=== PATIENT | male | born 1990 | race American Indian/Alaskan Native ===

== ENCOUNTER 2016-10-22 07:43 | Emergency (ER) | payer OTHER ==
[2016-10-22 07:53] VITALS: BP 134/89
--- NOTE | 2016-10-22 09:18 | Emergency Department Report ---
Abscess Boil HPI - HPI Chief Complaint: Skin/Abscess/Foreign Body Stated Complaint: BOIL/UNDER ARM AREA Time Seen by Provider: 10/22/16 08:47 Duration: Today Location: Upper Extremity Severity: Mild History: No Fever, No Pain, No Purulent Drainage, No Numbness, No Foreign Body, No Previous History, No Insect Bite HPI: 26-year-old male past medical history recurrent axillary abscesses presents with 2 days of left axillary abscess. Denies any fever or chills. States he has had many of these in the past. Home Medications: Home Medications Medication Instructions Recorded Confirmed Last Taken Albuterol Sulfate [Albuterol 0.63%] PRN 02/14/14 12/07/14 02/14/14 10:00 Previous Rx's Medication Instructions Recorded Last Taken Type Acetaminophen/Codeine 1 tab PO Q6H PRN #12 tab 12/07/14 Unknown Rx [Acetaminophen-Codeine #3 TAB] Ibuprofen [Motrin] 600 mg PO Q8H PRN #30 tablet 12/07/[address] [Slava Gomez] 75 mg PO Q12H #30 tablet 07/22/15 Unknown Rx traMADol [Ultram 50 MG tab] 50 mg PO Q6HR PRN #20 tablet 07/22/15 Unknown Rx Acetaminophen/Codeine [Tylenol #3] 1 tab PO Q6H PRN #10 tab 09/13/15 Unknown Rx Cephalexin [Keflex] 500 mg PO Q12HR #10 cap 09/13/15 Unknown Rx Ibuprofen [Motrin 800 MG tab] 800 mg PO Q8HR PRN #30 tablet 09/13/15 Unknown Rx Sulfamethoxazole/Trimethoprim 1 each PO BID #20 tablet 09/25/15 Unknown Rx [Bactrim DS TAB] Cephalexin [Keflex] 500 mg PO BID #14 capsule 10/22/16 Unknown Rx Ibuprofen [Motrin] 600 mg PO Q8H PRN #25 tablet 10/22/16 Unknown Rx Sulfamethoxazole/Trimethoprim 1 each PO BID #14 tablet 10/22/16 Unknown Rx [Bactrim DS TAB] Allergies/Adverse Reactions: Allergies Allergy/AdvReac Type Severity Reaction Status Date / Time No Known Allergies Allergy Verified 12/07/14 09:35 ED Review of Systems ROS: Stated complaint: BOIL/UNDER ARM AREA Other details as noted in HPI Constitutional: denies: chills, fever Eyes: denies: eye pain, eye discharge, vision change ENT: denies: ear pain, throat pain Respiratory: denies: cough, shortness of breath, wheezing Cardiovascular: denies: chest pain, palpitations Endocrine: no symptoms reported Gastrointestinal: denies: abdominal pain, nausea, diarrhea Genitourinary: denies: urgency, dysuria Musculoskeletal: denies: back pain, joint swelling, arthralgia Skin: as per HPI. denies: rash, lesions Neurological: denies: headache, weakness, paresthesias Psychiatric: denies: anxiety, depression Hematological/Lymphatic: denies: easy bleeding, easy bruising ED Past Medical Hx - Past Medical History Hx Asthma: Yes - Surgical History Past Surgical History?: No - Social History Smoking Status: Current Every Day Smoker Substance Use Type: Alcohol, Marijuana - Medications Home Medications: Home Medications Medication Instructions Recorded Confirmed Last Taken Type Albuterol Sulfate [Albuterol 0.63%] PRN 02/14/14 12/07/14 02/14/14 10:00 History Acetaminophen/Codeine 1 tab PO Q6H PRN #12 tab 12/07/14 Unknown Rx [Acetaminophen-Codeine #3 TAB] Ibuprofen [Motrin] 600 mg PO Q8H PRN #30 tablet 12/07/[address] [Slava Gomez] 75 mg PO Q12H #30 tablet 07/22/15 Unknown Rx traMADol [Ultram 50 MG tab] 50 mg PO Q6HR PRN #20 tablet 07/22/15 Unknown Rx Acetaminophen/Codeine [Tylenol #3] 1 tab PO Q6H PRN #10 tab 09/13/15 Unknown Rx Cephalexin [Keflex] 500 mg PO Q12HR #10 cap 09/13/15 Unknown Rx Ibuprofen [Motrin 800 MG tab] 800 mg PO Q8HR PRN #30 tablet 09/13/15 Unknown Rx Sulfamethoxazole/Trimethoprim 1 each PO BID #20 tablet 09/25/15 Unknown Rx [Bactrim DS TAB] Cephalexin [Keflex] 500 mg PO BID #14 capsule 10/22/16 Unknown Rx Ibuprofen [Motrin] 600 mg PO Q8H PRN #25 tablet 10/22/16 Unknown Rx Sulfamethoxazole/Trimethoprim 1 each PO BID #14 tablet 10/22/16 Unknown Rx [Bactrim DS TAB] ED Abscess Boil Physical Exam - Exam General: Vital signs noted. No distress. Alert and acting appropriately. I & D Note - I & D Note I & D Note: Area infiltrated with 2% lidocaine no epi, small vertical incision 1 cm made tiny amount of purulent drainage procedure tolerated well minimal bleeding covered with 4 x 4 gauze no packing placed ED Course Vital Signs 10/22/16 07:49 Temperature 98.1 F Pulse Rate 96 H Respiratory 16 Rate Blood Pressure 134/89 O2 Sat by Pulse 98 Oximetry Critical care attestation.: If time is entered above; I have spent that time in minutes in the direct care of this critically ill patient, excluding procedure time. ED Medical Decision Making - Medical Decision Making A/P: Left axillary abscess 1-I&D performed minimal drainage 2-small amount of erythema will cover empirically with Bactrim and Keflex 3-Motrin when necessary for pain ED Disposition Clinical Impression: Axillary abscess Disposition: DISCHARGED TO HOME OR SELFCARE Is pt being admited?: No Does the pt Need Aspirin: No Condition: Stable Instructions: Abscess Incision and Drainage (ED) Prescriptions: Cephalexin [Keflex] 500 mg PO BID #14 capsule Ibuprofen [Motrin] 600 mg PO Q8H PRN #25 tablet PRN Reason: Pain Sulfamethoxazole/Trimethoprim [Bactrim DS TAB] 1 each PO BID #14 tablet Referrals: PRIMARY CARE, [Primary Care Provider] - 3-5 Days Forms: Work/School Release Form(ED) Time of Disposition: 09:16
== END 2016-10-22 09:28 | disposition home or self-care (01) ==
LOC: ED 07:43
DX: L02.412 Cutaneous abscess of left axilla (principal); J45.909 Unspecified asthma, uncomplicated; F17.200 Nicotine dependence, unspecified, uncomplicated; F12.10 Cannabis abuse, uncomplicated
CPT/HCPCS: 99282

== ENCOUNTER 2016-10-26 08:19 | Emergency (ER) | payer SELFPAY | END 2016-10-26 08:23 | disposition left against medical advice (07) | LOC: ED 08:19 | DX: M79.1 Myalgia (principal); Z53.21 Procedure and treatment not carried out due to patient leaving prior to being seen by health care provider; W57.XXXA Bitten or stung by nonvenomous insect and other nonvenomous arthropods, initial encounter; Y93.9 Activity, unspecified; Y92.9 Unspecified place or not applicable; Y99.9 Unspecified external cause status ==

== ENCOUNTER 2017-04-28 22:02 | Emergency (ER) | payer OTHER ==
--- NOTE | 2017-04-28 23:02 | XRay Report ---
FINAL REPORT PROCEDURE: XR HAND 3+V RT TECHNIQUE: RIGHT hand radiographs, AP, lateral, and oblique views. CPT 20972-DU HISTORY: hand swelling COMPARISON: No prior studies are available for comparison. FINDINGS: Fracture (s) and/or Dislocation(s): An acute comminuted fracture is noted involving the head and neck of 2nd metacarpal without significant displacement of the fragments.. Alignment: Normal . Joint space(s): Normal . Soft tissues: Normal . Bone mineralization: Normal . Foreign bodies: None . IMPRESSION: Acute fracture distal 2nd metacarpal.
[2017-04-29] MEDS ORDERED: NORCO 5/325 PO ONE (00:57)
--- NOTE | 2017-04-29 01:07 | Emergency Department Report ---
HPI - General Chief Complaint: Extremity Injury, Upper Time Seen by Provider: 04/29/17 00:54 - HPI HPI: 26-year-old male presents to the ED complaining of right hand pain and swelling 1 day. Patient states earlier today he thinks it is broken. Patient denies any loss of sensation or loss of feeling in the hand. ED Past Medical Hx - Past Medical History Previous Medical History?: Yes Hx Asthma: Yes - Surgical History Past Surgical History?: No - Social History Smoking Status: Current Every Day Smoker Substance Use Type: Alcohol, Marijuana - Medications Home Medications: Home Medications Medication Instructions Recorded Confirmed Last Taken Type Albuterol Sulfate [Albuterol 0.63%] PRN 02/14/14 12/07/14 02/14/14 10:00 History Ibuprofen [Motrin] 600 mg PO Q8H PRN #30 tablet 12/07/[address] [Voltaren Dr] 75 mg PO Q12H #30 tablet 07/22/15 Unknown Rx traMADol [Ultram 50 MG tab] 50 mg PO Q6HR PRN #20 tablet 07/22/15 Unknown Rx Acetaminophen/Codeine [Tylenol #3] 1 tab PO Q6H PRN #10 tab 09/13/15 Unknown Rx Cephalexin [Keflex] 500 mg PO Q12HR #10 cap 09/13/15 Unknown Rx Sulfamethoxazole/Trimethoprim 1 each PO BID #20 tablet 09/25/15 Unknown Rx [Bactrim DS TAB] Cephalexin [Keflex] 500 mg PO BID #14 capsule 10/22/16 Unknown Rx Ibuprofen [Motrin] 600 mg PO Q8H PRN #25 tablet 10/22/16 Unknown Rx Sulfamethoxazole/Trimethoprim 1 each PO BID #14 tablet 10/22/16 Unknown Rx [Bactrim DS TAB] Acetaminophen/Codeine [Tylenol 1 tab PO Q6H PRN #12 tab 04/29/17 Unknown Rx /Codeine # 3 tab] Ibuprofen [Motrin 800 MG tab] 800 mg PO Q8HR PRN #30 tablet 04/29/17 Unknown Rx methOCARBAMOL [Robaxin TAB] 500 mg PO BID #30 tab 04/29/17 Unknown Rx ED Review of Systems ROS: Stated complaint: RT FINGER CUT Other details as noted in HPI Constitutional: denies: chills, fever Eyes: denies: eye pain, eye discharge, vision change ENT: denies: ear pain, throat pain Respiratory: denies: cough, shortness of breath, wheezing Cardiovascular: denies: chest pain, palpitations Endocrine: no symptoms reported Gastrointestinal: denies: abdominal pain, nausea, diarrhea Genitourinary: denies: urgency, dysuria Musculoskeletal: denies: back pain, joint swelling, arthralgia Skin: denies: rash, lesions Neurological: denies: headache, weakness, paresthesias Psychiatric: denies: anxiety, depression Hematological/Lymphatic: denies: easy bleeding, easy bruising Physical Exam - Physical Exam Vital Signs: Vital Signs 04/28/17 04/28/17 22:07 22:25 Temperature 98.4 F 98.4 F Pulse Rate 81 81 Respiratory 18 18 Rate Blood Pressure 125/75 Blood Pressure 120/75 [Right] O2 Sat by Pulse 98 98 Oximetry Physical Exam: GENERAL: Alert and oriented x3, no apparent distress, Normal Gait, atraumatic. HEAD: Head is normocephalic and a-traumatic. EYES: Extra ocular muscles are intact. Pupils are equal, round, and reactive to light and accommodation. LUNGS: Symetrical with respiration, No wheezing, no rales or crackles, CTAB. HEART: S1, S2 present, regular rate and rhythm without murmur, no rubs, no gallops. Non tender to palpation EXTREMITIES/MUSCULOSKELETAL: Right hand swollen, tender to palpation, no ecchymoses not to bleeding, erythematous Zarate minor abrasions on the posterior aspect of the right hand. Patient unable to make a fist on the way. Full ROM off the wrists and all other joints bilaterally. UE/LE Pulses 2+ bilaterally. NEUROLOGIC: The patient is cooperative with no focal neurologic deficits. Cranial nerves II through XII are grossly intact. Normal speech. SKIN: Warm and dry, No lesions, No ulceration or induration present. ED Course Vital Signs 04/28/17 04/28/17 22:07 22:25 Temperature 98.4 F 98.4 F Pulse Rate 81 81 Respiratory 18 18 Rate Blood Pressure 125/75 Blood Pressure 120/75 [Right] O2 Sat by Pulse 98 98 Oximetry ED Medical Decision Making - Radiology Data Radiology results: report reviewed, image reviewed FINAL REPORT PROCEDURE: XR HAND 3+V RT TECHNIQUE: RIGHT hand radiographs, AP, lateral, and oblique views. CPT 25289-XQ HISTORY: hand swelling COMPARISON: No prior studies are available for comparison. FINDINGS: Fracture (s) and/or Dislocation(s): An acute comminuted fracture is noted involving the head and neck of 2nd metacarpal without significant displacement of the fragments.. Alignment: Normal . Joint space(s): Normal . Soft tissues: Normal . Bone mineralization: Normal . Foreign bodies: None . IMPRESSION: Acute fracture distal 2nd metacarpal. Transcribed By: [facility] [place]ictated By: RIDGE GARCIA Electronically Authenticated By: RIDGE GARCIA Signed Date/Time: 04/28/17 2025 - Medical Decision Making 26-year-old male presents to ED with fracture of the right index metacarpal ED course: Patient received pain medications in ED. Hand x-ray obtained. An x-ray shows report see above Discussed findings with patient. Discussed patient to follow up with orthopedic Dr. Chang as referred. Patient was applied a full us OCL splint and discussed the patient RICE protocols Vital signs are normal patient is in no acute distress. Post splint examination: Neurovascularly intact, capillary refill present 2 secs Critical care attestation.: If time is entered above; I have spent that time in minutes in the direct care of this critically ill patient, excluding procedure time. ED Disposition Clinical Impression: Fracture of metacarpal neck of right hand, closed Qualifiers: Encounter type: initial encounter Metacarpal bone: first Fracture alignment: nondisplaced Qualified Code(s): S62.254A - Nondisplaced fracture of neck of first metacarpal bone, right hand, initial encounter for closed fracture Disposition: DC- TO HOME OR SELFCARE Is pt being admited?: No Does the pt Need Aspirin: No Condition: Stable Instructions: Hand Fracture (ED), Splint Care (ED), RICE Therapy (ED) Prescriptions: Acetaminophen/Codeine [Tylenol /Codeine # 3 tab] 1 tab PO Q6H PRN #12 tab PRN Reason: Pain Ibuprofen [Motrin 800 MG tab] 800 mg PO Q8HR PRN #30 tablet PRN Reason: pain methOCARBAMOL [Robaxin TAB] 500 mg PO BID #30 tab Referrals: PRIMARY CAREMD [Primary Care Provider] - 3-5 Days TEDDY CHANG MD [Staff Physician] - 3-5 Days Forms: Accompanied Note, Work/School Release Form(ED) Time of Disposition: 01:13
[2017-04-29 01:55] VITALS: BP 133/88
== END 2017-04-29 01:40 | disposition home or self-care (01) ==
LOC: ED 22:02
DX: S62.254A Nondisplaced fracture of neck of first metacarpal bone, right hand, initial encounter for closed fracture (principal); J45.909 Unspecified asthma, uncomplicated; F17.200 Nicotine dependence, unspecified, uncomplicated; F12.10 Cannabis abuse, uncomplicated; X58.XXXA Exposure to other specified factors, initial encounter; Y93.9 Activity, unspecified; Y92.9 Unspecified place or not applicable; Y99.8 Other external cause status